=== PATIENT | male | born 1985 | race Caucasian/White ===

== ENCOUNTER 2019-09-10 15:27 | Emergency (ER) | payer SELFPAY ==
[2019-09-10 16:02] LABS: Bilirubin Negative (Negative); Blood, Urine Negative (Negative); Clarity Clear (Clear); Glucose, Urine (Dipstick) Normal (Negative); Leukocyte Negative Leu/uL (Negative); Nitrite Negative (Negative); Protein, Urine (Dipstick) Negative (Neg-Trace); Urobilinogen Normal mg/dL (Less than 2)
--- NOTE | 2019-09-10 16:16 | ULT ---
EXAM: Testicular/scrotal ultrasound HISTORY: Left testicular pain for 3 days COMPARISON: None TECHNIQUE: Multiplanar grayscale and color Doppler images were obtained in a testicular/scrotal ultra sound. Spectral analysis of the Doppler waveforms of the testicles were performed. FINDINGS: Right testicle: Normal in echogenicity. No focal mass. Normal internal flow. Left testicle: Normal in echogenicity. No focal mass. Normal internal flow. Right epididymis. No epididymal cyst. Normal internal flow. Left epididymis. No epididymal cyst. Normal internal flow. No hydrocele is present. Small left varicocele is present. IMPRESSION: Small left varicocele
[2019-09-10] MEDS ORDERED: HYDROcodone/Acetaminophen 10/325 mg Tablet ONE (17:18)
== END 2019-09-10 17:25 | disposition home or self-care (01) ==
LOC: ERS 15:27
DX: I86.1 Scrotal varices (principal); F17.210 Nicotine dependence, cigarettes, uncomplicated
CPT/HCPCS: 76870; 81003; 87086; 93976

== ENCOUNTER 2020-08-07 13:31 | Emergency (ER) | payer SELFPAY ==
[2020-08-07] MEDS ORDERED: Ketorolac Tromethamine 30 MG/ML VIAL ONE (14:04)
--- NOTE | 2020-08-07 14:10 | RAD ---
XR Ankle Lt 3 View STANDARD INDICATION: Lateral left ankle pain COMPARISON: None. FINDINGS: Bones: Intact. 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 Talar Dome: Intact. Subtalar joint: Normal. Visualized hindfoot: Normal. Periarticular soft tissues: Normal. IMPRESSION: 1. No acute fracture or subluxation demonstrated.
== END 2020-08-07 15:30 | disposition home or self-care (01) ==
LOC: ERS 13:31
DX: M25.572 Pain in left ankle and joints of left foot (principal); F17.210 Nicotine dependence, cigarettes, uncomplicated
CPT/HCPCS: 96372; J1885

== ENCOUNTER 2022-09-27 11:07 | Emergency (ER) | payer SELFPAY ==
[2022-09-27] MEDS ORDERED: Ketorolac Tromethamine 30 MG/ML VIAL ONE (11:51)
[2022-09-27] MEDS ORDERED: Boostrix 0.5 ML (Tdap) VIAL (>/=7 yrs of age) ONE (11:51)
== END 2022-09-27 12:23 | disposition home or self-care (01) ==
LOC: ERS 11:07
DX: S91.332A Puncture wound without foreign body, left foot, initial encounter (principal); F17.210 Nicotine dependence, cigarettes, uncomplicated; Y93.39 Activity, other involving climbing, rappelling and jumping off; Z23 Encounter for immunization
CPT/HCPCS: 90471; 90715; 96372; J1885